=== PATIENT | male | born 1940 | race Caucasian/White ===

== ENCOUNTER → 2016-11-09 | Outpatient (CLI) | payer MEDICARE, OTHER ==
[~2016-11-09] MED LIST: ASPIRIN 81MG TA81 MG PO; ASPIRIN EC81 MG PO; ASPIRIN325 M1 PO; ATIVAN GENERIC0.5 MG PO; CIPROFLOXACIN500 M2 PO; COREG 3.125M3.125 MG PO; DESONATE; DOCUSATE NA250 MG PO; DOCUSATE SODIU100 MG PO; FLAGYL 500MG.500 MG PO; FLOMAX 0.4MG C0.4 MG; GOOD SENSE PAI500 M1 PO; IMODIUM A-D2 M1 PO; LISINOPRIL 10MG10 MG PO; LISINOPRIL 20MG20 MG; LISINOPRIL10 MG PO; METOPROLOL SUCC25 M2 PO; MORPHINE SULFAT15 M3 PO; MORPHINE SULFAT15 MG PO; MS CONTIN 100M100 MG PO; NITROSTAT0.4 MG SL; OMEPRAZOLE20 MG PO; OXYCODONE/APAP1 TAB PO; PERCOCET 10 MG1 EACH PO; PERCOCET 5/3251 EACH PO; PHENERGAN12.5 M2 PR; PHENERGAN25 MG/M1 PO; PREDNISONE 10MG10 MG PO; PRILOSEC20 MG PO; PRIMIDONE 50 MG50 MG PO; SIMVASTATIN40 MG PO; TRAMADOL 50MG T50 M1 PO; ZANTAC50 MG/2 ML PO; ZOFRAN ODT4 MG PO
--- NOTE | 2016-11-09 10:48 | RADIOLOGY REPORT PS360 ---
CHEST(2 VIEWS-NOT PORTABLE) HISTORY: CP, SOA, COUGH COMPARISON: 07/24/2015 FINDINGS: The cardiomediastinal silhouette and pulmonary vascularity are within normal limits. The lungs are clear without infiltrates, suspicious nodules, or pleural effusions. No acute bony abnormalities. There are degenerative changes in the thoracic spine. IMPRESSION: No change with no acute finding
== END ==
LOC: RAD 09:48
DX: R07.9 Chest pain, unspecified (principal); R06.02 Shortness of breath; R05 Cough